=== PATIENT | male | born 1945 | race Caucasian/White ===

== ENCOUNTER 2017-09-19 17:09 | Observation (INO) | payer BC, MEDICARE ==
[2017-09-19 17:54] LABS: ADD MAN DIFF? NO
[2017-09-19 17:55] LABS: WHITE BLOOD COUNT 18.1 10^3/ul (4.8-10.8)
[2017-09-19 17:55] LABS: BASOPHIL # 0.1 10^3/ul (0.0-0.1); BASOPHILS % 0.3 % (0.0-2.0); EOSINOPHILS % 0.1 % (0.0-7.0); HEMATOCRIT 40.5 % (42.0-52.0); HEMOGLOBIN 13.6 g/dl (14.0-18.0); LYMPHOCYTES # 1.8 10^3/ul (0.8-2.9); MEAN CORPUSCULAR HEMOGLOBIN 30.8 pg (29.0-33.0); MEAN CORPUSCULAR HGB CONC 33.6 g/dl (32.0-37.0); MEAN CORPUSCULAR VOLUME 91.6 fl (82.0-101.0); MONOCYTE # 1.1 10^3/ul (0.3-0.9); MONOCYTES % 6.3 % (0.0-11.0); NEUTROPHILS % 82.7 % (39.0-77.0); PLATELET COUNT 394 10^3/UL (140-415); RED BLOOD COUNT 4.42 10^6/ul (4.70-6.10); RED CELL DISTRIBUTION WIDTH 13.1 % (11.5-14.5)
[2017-09-19 18:11] LABS: ANION GAP 20 (8-16); BLOOD UREA NITROGEN 23 mg/dl (7-20); CALCIUM 9.5 mg/dl (8.4-10.2); CARBON DIOXIDE 27 mmol/L (21-31); CHLORIDE 99 mmol/L (97-110); CREATININE 0.92 mg/dl (0.61-1.24); GLUCOSE 167 mg/dl (70-220); POTASSIUM 4.2 mmol/L (3.5-5.1); SODIUM 142 mmol/L (135-144)
[2017-09-19] MEDS: NITROGLYCERIN 2% 1 GM OINT PKT TD (18:11)
[2017-09-19] MEDS: ASPIRIN 81 MG TAB PO (18:12)
[2017-09-19] MEDS: ONDANSETRON 4 MG INJ IV (18:12)
[2017-09-19] MEDS: morphine 4 MG/ML VIAL IV (18:13)
[2017-09-19 18:29] LABS: TROPONIN-I < 0.012 ng/ml (0.00-0.12)
[2017-09-19] MEDS ORDERED: ACETAMINOPHEN 325 MG TAB PO ×2 (19:00→22:00)
[2017-09-19] MEDS ORDERED: ONDANSETRON 4 MG INJ IV (19:00)
[2017-09-19] MEDS ORDERED: NITROGLYCERIN (SL) 0.4 MG TAB SL (22:00)
[2017-09-19] MEDS ORDERED: DOCUSATE SODIUM 100 MG CAP PO (22:00)
[2017-09-19] MEDS ORDERED: MAGNESIUM HYDROXIDE 30ML CUP PO (22:00)
[2017-09-19] MEDS ORDERED: NACL 0.9% 3 ML SYG IV (22:00)
[2017-09-19] MEDS ORDERED: ZOLPIDEM 5 MG TAB PO (22:00)
[2017-09-19 23:45] LABS: CREATINE KINASE 204 IU/L (23-200)
[2017-09-19 23:59] LABS: CK INDEX 1.4; CK-MB 2.92 ng/ml (0.0-2.4); TROPONIN-I < 0.012 ng/ml (0.00-0.12)
[2017-09-20] MEDS: ONDANSETRON 4 MG INJ IV (00:06)
[2017-09-20] MEDS: LORAZEPAM 0.5 MG TAB PO (00:13)
[2017-09-20 00:37] LABS: ADD UMIC YES; UR ASCORBIC ACID NEGATIVE (NEGATIVE); UR BILIRUBIN (Dip) NEGATIVE (NEGATIVE); UR BLOOD (Dip) 2+ mg/dL (NEGATIVE); UR CLARITY CLEAR (CLEAR); UR COLOR YELLOW (YELLOW); UR GLUCOSE (Dip) NEGATIVE (NEGATIVE); UR KETONES (Dip) 1+ mg/dL (NEGATIVE); UR LEUKOCYTE ESTERASE (Dip) NEGATIVE Leu/ul (NEGATIVE); UR MUCUS MANY /HPF (NONE SEEN); UR NITRITE (Dip) NEGATIVE (NEGATIVE); UR RBC 12 /HPF (0-5); UR SPECIFIC GRAVITY (Dip) 1.027 (1.003-1.030); UR SQUAMOUS EPITHELIAL CELL FEW /HPF (FEW); UR TOTAL PROTEIN (Dip) NEGATIVE (NEGATIVE); UR UROBILINOGEN (Dip) NEGATIVE (NEGATIVE); UR WBC 2 /HPF (0-5)
[2017-09-20] MEDS: HYDROCODONE/APAP (5/325) TAB PO (02:10)
[2017-09-20 05:35] LABS: ADD MAN DIFF? NO
[2017-09-20 05:38] LABS: WHITE BLOOD COUNT 18.9 10^3/ul (4.8-10.8)
[2017-09-20 05:38] LABS: BASOPHILS % 0.2 % (0.0-2.0); EOSINOPHILS % 0.1 % (0.0-7.0); HEMATOCRIT 38.1 % (42.0-52.0); HEMOGLOBIN 12.5 g/dl (14.0-18.0); LYMPHOCYTES # 1.8 10^3/ul (0.8-2.9); LYMPHOCYTES % 9.7 % (15.0-51.0); MEAN CORPUSCULAR HEMOGLOBIN 30.2 pg (29.0-33.0); MEAN CORPUSCULAR HGB CONC 32.8 g/dl (32.0-37.0); MEAN PLATELET VOLUME 10.6 fl (7.4-10.4); MONOCYTE # 1.2 10^3/ul (0.3-0.9); MONOCYTES % 6.5 % (0.0-11.0); NEUTROPHIL # 15.7 10^3/ul (1.6-7.5); NEUTROPHILS % 83.1 % (39.0-77.0); PLATELET COUNT 384 10^3/UL (140-415); RED BLOOD COUNT 4.14 10^6/ul (4.70-6.10); RED CELL DISTRIBUTION WIDTH 13.2 % (11.5-14.5)
[2017-09-20] MEDS: PANTOPRAZOLE (EC) 40 MG TAB PO (05:52)
[2017-09-20 06:07] LABS: ALANINE AMINOTRANSFERASE 25 IU/L (13-69); ALBUMIN/GLOBULIN RATIO 1.29; ALKALINE PHOSPHATASE 68 IU/L (42-121); ANION GAP 20 (8-16); ASPARTATE AMINO TRANSFERASE 22 IU/L (15-46); BILIRUBIN,INDIRECT 0.8 mg/dl (0-1.1); BILIRUBIN,TOTAL 0.8 mg/dl (0.2-1.3); BLOOD UREA NITROGEN 28 mg/dl (7-20); CALCIUM 9.1 mg/dl (8.4-10.2); CARBON DIOXIDE 22 mmol/L (21-31); CHLORIDE 104 mmol/L (97-110); CHOL/HDL RATIO 1.9 RATIO; CHOLESTEROL 119 mg/dl (100-200); CREATININE 0.83 mg/dl (0.61-1.24); GLUCOSE 154 mg/dl (70-220); HDL CHOLESTEROL 60 mg/dl (31-75); LDL CHOLESTEROL,CALCULATED 42 mg/dl; SODIUM 141 mmol/L (135-144); TOTAL PROTEIN 7.1 g/dl (6.1-8.1); TRIGLYCERIDES 83 mg/dl (0-149)
[2017-09-20 06:11] LABS: CREATINE KINASE 215 IU/L (23-200)
[2017-09-20 06:19] LABS: CK INDEX 1.7
[2017-09-20 06:24] LABS: CK-MB 3.57 ng/ml (0.0-2.4); TROPONIN-I < 0.012 ng/ml (0.00-0.12)
[2017-09-20] MEDS: ASPIRIN 81 MG TAB PO (08:24)
[2017-09-20] MEDS: ENOXAPARIN 40 MG/0.4 ML SYG SC (08:30)
[2017-09-20] MEDS: LISINOPRIL 5 MG TAB PO (08:41)
[2017-09-20 15:16] LABS: CARCINOEMBRYONIC ANTIGEN 0.5 ng/ml (0.0-5.0)
[2017-09-20] MEDS: ATORVASTATIN 20 MG TAB PO (20:46)
[2017-09-21] MEDS: CEFTRIAXONE 1 GM/50 ML (PMX) 50 ML IVPB (01:56)
[2017-09-21] MEDS: morphine 2 MG INJ IV (01:56)
[2017-09-21] MEDS: PANTOPRAZOLE (EC) 40 MG TAB PO (06:28)
[2017-09-21 09:07] LABS: ADD MAN DIFF? NO
[2017-09-21 09:12] LABS: ABNORMAL IP MESSAGE 1; BASOPHIL # 0.1 10^3/ul (0.0-0.1); BASOPHILS % 0.2 % (0.0-2.0); EOSINOPHILS % 0.1 % (0.0-7.0); HEMATOCRIT 35.7 % (42.0-52.0); HEMOGLOBIN 11.8 g/dl (14.0-18.0); LYMPHOCYTES # 2.4 10^3/ul (0.8-2.9); LYMPHOCYTES % 10.6 % (15.0-51.0); MEAN CORPUSCULAR HEMOGLOBIN 30.2 pg (29.0-33.0); MEAN CORPUSCULAR HGB CONC 33.1 g/dl (32.0-37.0); MEAN CORPUSCULAR VOLUME 91.3 fl (82.0-101.0); MONOCYTE # 2.1 10^3/ul (0.3-0.9); MONOCYTES % 8.9 % (0.0-11.0); NEUTROPHIL # 18.3 10^3/ul (1.6-7.5); NEUTROPHILS % 79.6 % (39.0-77.0); PLATELET COUNT 368 10^3/UL (140-415); POSITIVE DIFF @See below; RED BLOOD COUNT 3.91 10^6/ul (4.70-6.10); RED CELL DISTRIBUTION WIDTH 13.2 % (11.5-14.5)
[2017-09-21 09:16] LABS: RETICULOCYTE RBC 3.88
[2017-09-21 09:16] LABS: RETICULOCYTE COUNT # 0.059 X10^6 (0.020-0.110); RETICULOCYTE COUNT % 1.5 % (0.5-1.5)
[2017-09-21 09:27] LABS: HEMOGLOBIN A1C 5.9 % (0-5.9)
[2017-09-21 09:28] LABS: LACTIC ACID 1.1 mmol/L (0.5-2.0)
[2017-09-21 09:29] LABS: MAGNESIUM 2.2 mg/dl (1.7-2.5)
[2017-09-21 09:31] LABS: CREATINE KINASE 313 IU/L (23-200)
[2017-09-21 09:32] LABS: IRON 31 ug/dl (35-150)
[2017-09-21 09:35] LABS: ALANINE AMINOTRANSFERASE 26 IU/L (13-69); ALBUMIN 3.3 g/dl (3.3-4.9); ALBUMIN/GLOBULIN RATIO 1.06; ALKALINE PHOSPHATASE 60 IU/L (42-121); ANION GAP 15 (8-16); ASPARTATE AMINO TRANSFERASE 23 IU/L (15-46); BILIRUBIN,INDIRECT 0.6 mg/dl (0-1.1); BILIRUBIN,TOTAL 0.6 mg/dl (0.2-1.3); BLOOD UREA NITROGEN 20 mg/dl (7-20); CALCIUM 8.6 mg/dl (8.4-10.2); CARBON DIOXIDE 24 mmol/L (21-31); CHLORIDE 105 mmol/L (97-110); CREATININE 0.79 mg/dl (0.61-1.24); GLUCOSE 128 mg/dl (70-220); LIPASE 54 U/L (23-300); POTASSIUM 4.6 mmol/L (3.5-5.1); SODIUM 139 mmol/L (135-144); TOTAL PROTEIN 6.4 g/dl (6.1-8.1)
[2017-09-21 09:42] LABS: % IRON SATURATION 11 % SAT (22-52); TOTAL IRON BINDING CAPACITY 288 ug/dl (241-421)
[2017-09-21 09:43] LABS: CK-MB 3.08 ng/ml (0.0-2.4)
[2017-09-21] MEDS: ASPIRIN 81 MG TAB PO (09:46)
[2017-09-21] MEDS: LISINOPRIL 5 MG TAB PO (09:46)
[2017-09-21] MEDS: ENOXAPARIN 40 MG/0.4 ML SYG SC (09:47)
[2017-09-21 09:48] LABS: FREE T4 (FREE THYROXINE) 1.81 ng/dl (0.78-2.44)
[2017-09-21 09:49] LABS: TROPONIN-I < 0.012 ng/ml (0.00-0.12)
[2017-09-21 10:01] LABS: THYROID STIMULATING HORMONE 0.812 MIU/L (0.465-4.680)
[2017-09-21 10:35] LABS: FOLATE 12.9 ng/ml (2.8-20.0)
[2017-09-21] MEDS: IODIXANOL LOCM 100 ML BTL (12:28)
[2017-09-21] MEDS: SOD CHLORIDE 0.9% 100 ML (12:28)
[2017-09-21] MEDS: CYANOCOBALAMIN 1000 MCG INJ IM (17:35)
[2017-09-21 18:01] LABS: PSA, FREE 1.3 ng/mL
[2017-09-21] MEDS: ATORVASTATIN 20 MG TAB PO (20:43)
[2017-09-22] MEDS: CEFTRIAXONE 1 GM/50 ML (PMX) 50 ML IVPB (00:45)
[2017-09-22] MEDS: PANTOPRAZOLE (EC) 40 MG TAB PO (06:30)
[2017-09-22] MEDS: LISINOPRIL 5 MG TAB PO (08:39)
[2017-09-22] MEDS: ASPIRIN 81 MG TAB PO (08:44)
[2017-09-22] MEDS: CYANOCOBALAMIN 1000 MCG INJ IM (08:44)
[2017-09-22] MEDS: ENOXAPARIN 40 MG/0.4 ML SYG SC (08:51)
[2017-09-22 09:53] LABS: ADD MAN DIFF? NO
[2017-09-22 09:55] LABS: WHITE BLOOD COUNT 12.6 10^3/ul (4.8-10.8)
[2017-09-22 09:55] LABS: BASOPHIL # 0.1 10^3/ul (0.0-0.1); BASOPHILS % 0.5 % (0.0-2.0); EOSINOPHILS # 0.1 10^3/ul (0.0-0.5); HEMATOCRIT 37.2 % (42.0-52.0); HEMOGLOBIN 12.4 g/dl (14.0-18.0); LYMPHOCYTES # 2.2 10^3/ul (0.8-2.9); MEAN CORPUSCULAR HEMOGLOBIN 30.5 pg (29.0-33.0); MEAN CORPUSCULAR HGB CONC 33.3 g/dl (32.0-37.0); MEAN CORPUSCULAR VOLUME 91.4 fl (82.0-101.0); MEAN PLATELET VOLUME 10.7 fl (7.4-10.4); MONOCYTE # 1.4 10^3/ul (0.3-0.9); MONOCYTES % 11.3 % (0.0-11.0); NEUTROPHIL # 8.8 10^3/ul (1.6-7.5); NEUTROPHILS % 69.7 % (39.0-77.0); PLATELET COUNT 373 10^3/UL (140-415); RED BLOOD COUNT 4.07 10^6/ul (4.70-6.10); RED CELL DISTRIBUTION WIDTH 13.2 % (11.5-14.5)
[2017-09-22 10:13] LABS: PHOSPHORUS 4.1 mg/dl (2.5-4.9)
[2017-09-22 10:13] LABS: MAGNESIUM 2.1 mg/dl (1.7-2.5)
[2017-09-22 10:19] LABS: ALANINE AMINOTRANSFERASE 27 IU/L (13-69); ALBUMIN 3.9 g/dl (3.3-4.9); ALBUMIN/GLOBULIN RATIO 1.05; ALKALINE PHOSPHATASE 68 IU/L (42-121); ANION GAP 19 (8-16); ASPARTATE AMINO TRANSFERASE 27 IU/L (15-46); BILIRUBIN,INDIRECT 0.5 mg/dl (0-1.1); BILIRUBIN,TOTAL 0.5 mg/dl (0.2-1.3); BLOOD UREA NITROGEN 21 mg/dl (7-20); CALCIUM 9.2 mg/dl (8.4-10.2); CARBON DIOXIDE 23 mmol/L (21-31); CHLORIDE 102 mmol/L (97-110); CREATININE 0.83 mg/dl (0.61-1.24); GLUCOSE 102 mg/dl (70-220); POTASSIUM 4.1 mmol/L (3.5-5.1); SODIUM 140 mmol/L (135-144); TOTAL PROTEIN 7.6 g/dl (6.1-8.1)
== END 2017-09-22 13:25 | disposition home or self-care (01) ==
LOC: E/R 17:09 → MS3 09-20 17:57 → MS4 09-20 22:16 → MS3 18:45
DX: R07.9 Chest pain, unspecified (principal); R10.9 Unspecified abdominal pain; D50.9 Iron deficiency anemia, unspecified; E53.8 Deficiency of other specified B group vitamins; D72.829 Elevated white blood cell count, unspecified; C44.90 Unspecified malignant neoplasm of skin, unspecified; I25.10 Atherosclerotic heart disease of native coronary artery without angina pectoris; Z95.5 Presence of coronary angioplasty implant and graft; I25.2 Old myocardial infarction; I10 Essential (primary) hypertension; E11.9 Type 2 diabetes mellitus without complications; E78.5 Hyperlipidemia, unspecified; E87.5 Hyperkalemia; Z79.82 Long term (current) use of aspirin; R31.29 Other microscopic hematuria; F41.9 Anxiety disorder, unspecified
CPT/HCPCS: 36415; 71045; 74177; 76700; 80048; 80053; 80061; 81001; 82378; 82550; 82553; 82607; 82746; 83036; 83540; 83605; 83690; 83735; 84100; 84153; 84154; 84439; 84443; 84484; 85025; 85045; 87040; 87086; 93005; 93306; 96374; 96375; 99217; 99285-25; G0378